=== PATIENT | female | born 1995 | race Caucasian/White ===

== ENCOUNTER 2017-06-29 21:18 | Emergency (ER) | payer OTHER ==
[2017-06-29 22:30] LABS: ABSOLUTE BASOPHILS # (AUTO) 0.1 10^3/uL (0.0-0.2); ABSOLUTE EOSINOPHILS # (AUTO) 0.2 10^3/uL (0.0-0.6); ABSOLUTE LYMPHOCYTES (AUTO) 3.6 10^3/uL (0.5-4.7); ABSOLUTE MONOCYTES (AUTO) 0.8 10^3/uL (0.1-1.4); ABSOLUTE NEUT (AUTO) 2.8 10^3/uL (1.7-8.2); BASOPHILS % (AUTO) 0.7 % (0-2); EOSINOPHILS % (AUTO) 2.8 % (0-6); HEMATOCRIT 39.1 % (36.0-47.0); HEMOGLOBIN 13.3 g/dL (12.0-15.5); HGB HCT DIFFERENCE 0.8; MEAN CORPUSCULAR HEMOGLOBIN 28.9 pg (27.0-33.4); MEAN CORPUSCULAR HGB CONC 33.9 g/dL (32.0-36.0); MEAN CORPUSCULAR VOLUME 85 fl (80-97); MONOCYTES % (AUTO) 10.6 % (3-13); RED BLOOD COUNT 4.59 10^6/uL (3.72-5.28); RED CELL DISTRIBUTION WIDTH 13.3 % (11.5-14.0); SEGMENTED NEUTROPHILS % (AUTO) 37.9 % (42-78); WHITE BLOOD COUNT 7.5 10^3/uL (4.0-10.5)
[2017-06-29 22:38] LABS: AMORPHOUS SEDIMENT,URINE TRACE /HPF; APPEARANCE,URINE CLOUDY; BILIRUBIN,URINE NEGATIVE (NEGATIVE); GLUCOSE, URINE NEGATIVE (NEGATIVE); KETONES,URINE NEGATIVE (NEGATIVE); LEUKOCYTE ESTERASE,URINE NEGATIVE (NEGATIVE); NITRITE,URINE NEGATIVE (NEGATIVE); PROTEIN,URINE NEGATIVE (NEGATIVE); URINE SPECIFIC GRAVITY 1.025; UROBILINOGEN,URINE NEGATIVE mg/dL (<2.0)
[2017-06-29 22:46] LABS: ALANINE AMINOTRANSFERASE 28 U/L (9-52); ALBUMIN 4.7 g/dL (3.5-5.0); ALKALINE PHOSPHATASE 66 U/L (38-126); ANION GAP 11 (5-19); ASPARTATE AMINO TRANSFERASE 16 U/L (14-36); BILIRUBIN,DIRECT 0.3 mg/dL (0.0-0.4); BILIRUBIN,TOTAL 0.4 mg/dL (0.2-1.3); BLOOD UREA NITROGEN 18 mg/dL (7-20); CALCIUM 10.2 mg/dL (8.4-10.2); CARBON DIOXIDE 30 mmol/L (22-30); CHLORIDE 102 mmol/L (98-107); CREATININE RESULT 0.93 mg/dL (0.52-1.25); GLUCOSE 74 mg/dL (75-110); SODIUM 142.8 mmol/L (137-145); TOTAL PROTEIN 7.4 g/dL (6.3-8.2)
--- NOTE | 2017-06-29 23:26 | ER Document Report ---
ED General - General Chief Complaint: Abdominal Pain Stated Complaint: STOMACH PAIN Time Seen by Provider: 06/29/17 22:59 Notes: Patient is a 22-year-old female without past medical history who presents with concerns of approximately 1-2 months of pain with intercourse as well as intermittent bleeding with intercourse. Patient denies a history of similar symptoms prior to the past 1-2 months. She did see her INTERMEDIATE CARD TENDER regarding this concern, had a pelvic examination done but did not receive any additional answers as to the cause of her symptoms. She has not currently take anything for control. She is uncertain of the date of her last menstrual cycle. She describes the pain in her lower abdomen with sexual intercourse as being a dull, constant, throbbing pain. She has over the past 3-4 days she has also had intermittent lower abdominal pain even outside of having intercourse. No fever, vomiting, diarrhea or constitutional symptoms. TRAVEL OUTSIDE OF THE [place] IN LAST 30 DAYS: No Past Medical History - General Information source: Patient - Social History Smoking Status: Never Smoker Frequency of alcohol use: None Drug Abuse: None Lives with: Spouse/Significant other Family History: Reviewed & Not Pertinent Patient has suicidal ideation: No Patient has homicidal ideation: No Renal/ Medical History: Denies: Hx Peritoneal Dialysis Review of Systems - Review of Systems Notes: Constitutional: Negative for fever. HENT: Negative for sore throat. Eyes: Negative for visual changes. Cardiovascular: Negative for chest pain. Respiratory: Negative for shortness of breath. Gastrointestinal: Positive for abdominal pain Genitourinary: Positive for vaginal bleeding Musculoskeletal: Negative for back pain. Skin: Negative for rash. Neurological: Negative for headaches, weakness or numbness. 10 point ROS negative except as marked above and in HPI. Physical Exam - Vital signs Vitals: Temp Pulse Resp Pulse Ox 97.7 F 55 L 20 100 06/29/17 21:21 06/29/17 21:21 06/29/17 21:21 06/29/17 21:21 Interpretation: Normal Notes: PHYSICAL EXAMINATION: GENERAL: Well-appearing, well-nourished and in no acute distress. HEAD: Atraumatic, normocephalic. EYES: Pupils equal round and reactive to light, extraocular movements intact, sclera anicteric, conjunctiva are normal. ENT: nares patent, oropharynx clear without exudates. Moist mucous membranes. NECK: Normal range of motion, supple without lymphadenopathy LUNGS: Breath sounds clear to auscultation bilaterally and equal. No wheezes rales or rhonchi. HEART: Regular rate and rhythm without murmurs ABDOMEN: Soft, nontender, normoactive bowel sounds. No guarding, no rebound. No masses appreciated. EXTREMITIES: Normal range of motion, no pitting or edema. No cyanosis. NEUROLOGICAL: No focal neurological deficits. Moves all extremities spontaneously and on command. PSYCH: Normal mood, normal affect. SKIN: Warm, Dry, normal turgor, no rashes or lesions noted. Course - Re-evaluation Re-evalutation: 06/29/17 23:25 Patient presents with pain with sexual intercourse and vaginal bleeding with sexual intercourse for the past several months with intermittent lower abdominal pain. She came in tonight after this again occurred after having intercourse. She has no focal abdominal tenderness on examination. She has seen her OB once in the past without resolution. Will obtain a transvaginal ultrasound to evaluate for structural abnormalities and recommend outpatient follow-up as this does not appear to be an acute medical emergency 06/30/17 00:52 Labs and ultrasound are unremarkable. Abdominal exam remains benign. At this time will discharge with return precautions and follow-up recommendations. Verbal discharge instructions given a the bedside and opportunity for questions given. Medication warnings reviewed. Patient is in agreement with this plan and has verbalized understanding of return precautions and the need for primary care follow-up in the next 24-72 hours. - Vital Signs Vital signs: Temp Pulse Resp BP Pulse Ox 97.7 F 80 16 125/80 100 06/29/17 21:24 06/30/17 01:13 06/29/17 21:24 06/30/17 01:13 06/29/17 21:24 - Laboratory Result Diagrams: 06/29/17 22:10 06/29/17 22:10 Laboratory results interpreted by me: 06/29/17 06/29/17 06/29/17 22:10 22:10 22:10 Seg Neutrophils % 37.9 L Lymphocytes % 48.0 H Glucose 74 L Urine Ascorbic Acid 20 H Discharge - Discharge Clinical Impression: Dyspareunia in female, Vaginal bleeding Condition: Good Disposition: HOME, SELF-CARE Additional Instructions: Your ultrasound and labs are normal today. The exact cause of her symptoms is uncertain but should be evaluated more closely by sonography technician. Please follow- up is recommended. Return for any additional symptoms that are worrisome to you including worsening pain, persistent vaginal bleeding, fever, or any other symptoms that are worrisome to you.
--- NOTE | 2017-06-30 00:50 | RADIOLOGY REPORT (SQ) ---
EXAM DESCRIPTION: U/S NON OB PEL TV W/DOPPLER CLINICAL HISTORY: 22 years Female, pelvic pain, bleeding COMPARISON: None. TECHNIQUE: Complete transvaginal pelvic ultrasound. Color and spectral Doppler imaging of the ovaries obtained. FINDINGS: The uterus measures 7.5 x 4.2 x 2.7 cm. Endometrial thickness of 0.4 cm. Nabothian cyst identified in the cervix. No free pelvic fluid. No myometrial abnormalities. The right ovary measures 4.2 x 2.6 x 2.5 cm. The left ovary measures 4.5 x 3.1 x 1.8 cm. The ovaries have a normal appearance. Color and spectral Doppler imaging of the ovaries demonstrates flow bilaterally. IMPRESSION: 1. No abnormality identified in the pelvis by ultrasound criteria.
[2017-06-30 01:14] VITALS: BP 125/80
== END 2017-06-30 01:14 | disposition home or self-care (01) ==
LOC: ER 21:18
DX: N94.10 Unspecified dyspareunia (principal); N93.8 Other specified abnormal uterine and vaginal bleeding; R10.30 Lower abdominal pain, unspecified
CPT/HCPCS: 36415; 76830; 80053; 81001; 81025; 83690; 85025; 93976; 99284